=== PATIENT | male | born 1955 | race Caucasian/White ===

== ENCOUNTER 2017-08-08 08:42 | Inpatient (IN) | payer OTHER ==
[~2017-08-08] VITALS: Ht 175.3 cm; Wt 78.0 kg
[2017-08-08] VITALS (12 sets, daily range): BP systolic 112–156; BP diastolic 64–90; PULSE 78–101; RESP 16–24; TEMP 97.7–98.8; O2SAT 92–96
[~2017-08-08 08:42] MED LIST: ALBU8I INH; ALLO100T PO; BUPR-86 PO; LORT7.5T3 PO; OMEP20TA39 PO; PRED20 PO; ROPI2TAB23 PO; SPIR25TA PO; SPIRCAP INH
[2017-08-08] MEDS ORDERED: ALLO100T PO (09:14)
[2017-08-08] MEDS ORDERED: ROPI2TAB PO (09:14)
[2017-08-08] MEDS ORDERED: VENTAER INH (09:14)
[2017-08-08] MEDS ORDERED: SPIR25TA PO (09:14)
[2017-08-08] MEDS ORDERED: PRIL20TA2 PO (09:14)
[2017-08-08] MEDS ORDERED: HYDR-3583 PO (09:14)
[2017-08-08] MEDS ORDERED: ATOR20TA15 PO (09:14)
[2017-08-08] MEDS ORDERED: methylPREDNISolone SOD SUCC 125 MG/2 ML VIAL IV PUSH ONE (09:30)
[2017-08-08] MEDS ORDERED: SODIUM CHLORIDE 0.9% FLUSH 10 ML FLUSH IVF PRN (09:30)
--- NOTE | 2017-08-08 09:32 | PD ---
HPI Chief Complaint: Syncope/Near-Syncope Time Seen by Provider: 09:17 Travel History International Travel<30 days: No Contact w/Intl Traveler<30days: No Traveled to known affect area: No History of Present Illness HPI Patient presents to the emergency department for syncopal episode at work. States that he was at work this morning, he is a restaurant maintenance technician, and he passed out. New onset. States that he was this normal routine and was leaning on a toolbox when he felt faint. He did not fall, he had to hold himself up on the wall and his vision went white. States that his vision is normal now. Then drove home to have his bring him to the ER. He denies chest pain, numbness , tingling, vomiting, headache, but reports sweating, dyspnea secondary to COPD , and subjective fever. PFSH Past Medical History High Cholesterol: Yes COPD: Yes Gastrointestinal Disorders: Yes (Pancreatitis) Hypertension: Yes Medical other: Yes (GOUT) Respiratory: Yes Influenza Vaccination: Yes ?: Not Past Surgical History Abdominal Surgery: Yes (HERNIA REPAIR) Genitourinary Surgery: Yes (Hemmroids) Other Surgery: Yes (INFECTION CUT OUT OF BACK ) Social History Alcohol Use: Yes (12 PPD) Tobacco Use: No (TRYING TO QUIT) Substance Use: No Allergies-Medications (Allergen,Severity, Reaction): Coded Allergies: nabumetone (Unverified Adverse Reaction, Severe, Nausea/Vomiting, 08/08/17) Reported Meds & Prescriptions Reported Meds & Active Scripts Active Reported Ropinirole 2 Mg Tab 2 Mg PO ONCE Ventolin Hfa 18 GM Inh (Albuterol Sulfate) 90 Mcg/Act Aer 2 Puff INH Q6H PRN Spironolactone 25 Mg Tab 25 Mg PO DAILY Prilosec (Omeprazole Magnesium) 20 Mg Tab 20 Mg PO Allopurinol 100 Mg Tab 100 Mg PO DAILY Atorvastatin (Atorvastatin Calcium) 20 Mg Tab 20 Mg PO HS Hydrocodone-Acetaminophen 10-325 mg Tab 1 Tab PO Q6H PRN Review of Systems Except as stated in HPI: all other systems reviewed are Neg Physical Exam Narrative GENERAL: No acute distress. SKIN: Focused skin assessment warm/dry. HEAD: Atraumatic. Normocephalic. EYES: Pupils equal and round. No scleral icterus. No injection or drainage. ENT: No nasal bleeding or discharge. Mucous membranes pink and moist. NECK: Trachea midline. No JVD. CARDIOVASCULAR: Regular rate and rhythm. No murmur appreciated. RESPIRATORY: No accessory muscle use. Positive bilateral expiratory wheezes GASTROINTESTINAL: Abdomen soft, non-tender, nondistended. MUSCULOSKELETAL: No obvious deformities. No clubbing. No cyanosis. No edema. NEUROLOGICAL: Awake and alert. No obvious cranial nerve deficits. Motor grossly within normal limits. Normal speech. PSYCHIATRIC: Appropriate mood and affect; insight and judgment normal. Data Data Last Documented VS Vital Signs Date Time Temp Pulse Resp B/P (MAP) Pulse Ox O2 Delivery O2 Flow Rate FiO2 08/08/17 09:48 72 23 113/64 (80) 76 16 112/77 (89) 83 16 114/78 (90) 08/08/17 09:36 96 Nasal Cannula 2.00 08/08/17 08:45 97.7 Orders Orders Electrocardiogram (08/08/17 ) Complete Blood Count With Diff (08/08/17 09:27) Comprehensive Metabolic Panel (08/08/17:27) B-Type Natriuretic Peptide (08/08/17:27) D-Dimer (08/08/17 09:27) Act Partial Throm Time (Ptt) (08/08/17 09:27) Prothrombin Time / Inr (Pt) (08/08/17 09:27) Magnesium (Mg) (08/08/17 09:27) Ckmb (Isoenzyme) Profile (08/08/17 09:27) Troponin I (08/08/17 09:27) Iv Access Insert/Monitor (08/08/17:27) Electrocardiogram (08/08/17:27) Ecg Monitoring (08/08/17:27) Oximetry (08/08/17:27) Chest, Single Ap (08/08/17 09:27) Sodium Chloride 0.9% Flush (Ns Flush) (08/08/17 09:30) Methylprednisolone So Succ Inj (Solumedr (08/08/17 09:30) Albuterol-Ipratropium Neb (Duoneb Neb) (08/08/17 09:30) Orthostatic Vital Signs (08/08/17 09:28) Ct Brain W/O Iv Contrast(Rout) (08/08/17 10:18) Albuterol-Ipratropium Neb (Duoneb Neb) (08/08/17 11:45) Place In Observation (08/08/17 ) Code Status (08/08/17 11:55) Vital Signs (Adult) Q4H (08/08/17 11:55) Activity Bed Rest With Brp (08/08/17 ) Diet Regular Basic (08/08/17 Lunch) Sodium Chloride 0.9% Flush (Ns Flush) (08/08/17 21:00) Sodium Chloride 0.9% Flush (Ns Flush) (08/08/17 12:00) Albuterol-Ipratropium Neb (Duoneb Neb) (08/08/17 14:00) Albuterol Neb (Albuterol Neb) (08/08/17 12:00) Budeson-Formot 160-4.5 Mcg Inh (Symbicor (08/08/17 12:00) Methylprednisolone So Succ Inj (Solumedr (08/08/17 16:00) Basic Metabolic Panel (Bmp) (08/09/17 06:00) Complete Blood Count With Diff (08/09/17 06:00) Chest, Pa & Lat (08/09/17 08:00) Electrocardiogram (08/08/17 ) Resp Oxygen David C Titrat 1-4 L (08/08/17 ) Copd Educator Consult (08/08/17 ) Scd Bilateral/Knee High JOSE L.BID (08/08/17 11:55) Ns + Kcl 20 Meq Inj (Ns + Kcl 20 Meq Inj (08/08/17 14:00) Echo 2d Comp With Doppler (08/08/17 ) Holter Monitor Recording (08/08/17 ) Guide Dog Instructor / Telemetry JOSE L.Q8H (08/08/17 11:59) Thyroid Stimulating Hormone (08/08/17 11:59) Free Thyroxine (T4) (08/08/17 11:59) Rapid Plasma Regin (Rpr) W Ttr (08/08/17 11:59) Vitamin B12 (08/08/17 11:59) Folate, Serum (08/08/17 11:59) Ammonia (08/08/17 11:59) ^ Other Nursing Orders (08/08/17 11:59) Flumazenil Inj (Romazicon Inj) (08/08/17 12:15) Lorazepam (Ativan) (08/08/17 12:15) Lorazepam Inj (Ativan Inj) (08/08/17 12:15) Lorazepam (Ativan) (08/08/17 12:15) Lorazepam Inj (Ativan Inj) (08/08/17 12:15) Lorazepam Inj (Ativan Inj) (08/08/17 12:15) Lorazepam Inj (Ativan Inj) (08/08/17 12:15) Admit Order (Ed Use Only) (08/08/17 12:04) Labs Laboratory Tests Test 08/08/17 09:20 White Blood Count 10.7 TH/MM3 Red Blood Count 4.29 MIL/MM3 Hemoglobin 15.0 GM/DL Hematocrit 43.5 % Mean Corpuscular Volume 101.3 FL Mean Corpuscular Hemoglobin 34.9 PG Mean Corpuscular Hemoglobin Concent 34.4 % Red Cell Distribution Width 13.9 % Platelet Count 321 TH/MM3 Mean Platelet Volume 7.7 FL Neutrophils (%) (Auto) 78.2 % Lymphocytes (%) (Auto) 11.1 % Monocytes (%) (Auto) 8.9 % Eosinophils (%) (Auto) 1.0 % Basophils (%) (Auto) 0.8 % Neutrophils # (Auto) 8.3 TH/MM3 Lymphocytes # (Auto) 1.2 TH/MM3 Monocytes # (Auto) 0.9 TH/MM3 Eosinophils # (Auto) 0.1 TH/MM3 Basophils # (Auto) 0.1 TH/MM3 CBC Comment DIFF FINAL Differential Comment Prothrombin Time 9.7 SEC Prothromb Time International Ratio 1.0 RATIO Activated Partial Thromboplast Time 24.5 SEC D-Dimer Quantitative (PE/DVT) 0.28 MG/L FEU Blood Urea Nitrogen 10 MG/DL Creatinine 0.73 MG/DL Random Glucose 76 MG/DL Total Protein 7.2 GM/DL Albumin 3.5 GM/DL Calcium Level 9.0 MG/DL Magnesium Level 2.3 MG/DL Alkaline Phosphatase 97 U/L Aspartate Amino Transf (AST/SGOT) 26 U/L Alanine Aminotransferase (ALT/SGPT) 28 U/L Total Bilirubin 0.1 MG/DL Sodium Level 135 MEQ/L Potassium Level 4.0 MEQ/L Chloride Level 101 MEQ/L Carbon Dioxide Level 23.4 MEQ/L Anion Gap 11 MEQ/L Estimat Glomerular Filtration Rate 109 ML/MIN Total Creatine Kinase 86 U/L Troponin I LESS THAN 0.02 NG/ML B-Type Natriuretic Peptide 12 PG/ML MDM Medical Decision Making Medical Screen Exam Complete: Yes Emergency Medical Condition: Yes Interpretation(s) ECG: Sinus rhythm, rate 80, normal axis, normal intervals, QTC 395 labs: No leukocytosis, coags and d-dimer within normal limits, chemistry within normal limits Last Impressions Head CT 08/08/17 1018 Signed Impressions: CONCLUSION: 1. Senescent changes without acute intracranial abnormality. 2. Paranasal mucosal sinus disease. Chest X-Ray 08/08/17 0936 Signed Impressions: CONCLUSION: No acute cardiopulmonary findings. Differential Diagnosis COPD exacerbation, ACS, PE, CVA, intracranial abnormality, dehydration/ orthostasis Narrative Course Patient presents to the emergency department complaining of presyncopal episode. Patient placed on a diagnostic cardiac sonographer, IV access obtain an EKG/chest x- ray/head CT/labs ordered. Also 125 methylprednisolone and DuoNeb 2 ordered. 1138: Patient not orthostatic. Lungs positive expiratory wheezing after IV steroids and 2 duo nebs. Patient reports turnabout shortness of breath. Ordered another DuoNeb and admit for observation. Diagnosis Primary Impression: COPD exacerbation Additional Impression: Pre-syncope Admitting Information Admitting Physician Requests: Observation Condition: Stable Afua Munoz MD Aug 08, 2017 09:32
[2017-08-08] MEDS: RESP: ALBUTEROL 2.5 MG/IPRATROPIUM 0.5 MG NEB (SCH) INH ×3 (09:34→23:08)
[2017-08-08 09:45] LABS: AUTOMATED NEUTROPHIL # 8.3 TH/MM3 (1.8-7.7); BASOPHIL # 0.1 TH/MM3 (0-0.2); BASOPHIL % 0.8 % (0.0-2.0); EOSINOPHIL # 0.1 TH/MM3 (0-0.4); HEMATOCRIT 43.5 % (39.0-51.0); LYMPH % 11.1 % (9.0-44.0); LYMPHOCYTE # 1.2 TH/MM3 (1.0-4.8); MEAN CELL VOLUME 101.3 FL (80.0-100.0); MEAN CORPUSCULAR HEMOGLOBIN 34.9 PG (27.0-34.0); MEAN CORPUSCULAR HGB CONC 34.4 % (32.0-36.0); MEAN PLATELET VOLUME 7.7 FL (7.0-11.0); MONO % 8.9 % (0.0-8.0); MONOCYTE # 0.9 TH/MM3 (0-0.9); NEUT % 78.2 % (16.0-70.0); PLATELET COUNT 321 TH/MM3 (150-450); RED BLOOD COUNT 4.29 MIL/MM3 (4.50-5.90); RED CELL DISTRIBUTION WIDTH 13.9 % (11.6-17.2); WHITE BLOOD COUNT 10.7 TH/MM3 (4.0-11.0)
[2017-08-08 09:58] LABS: D-DIMER 0.28 MG/L FEU (0.00-0.50); PROTHROMBIN TIME - PATIENT 9.7 SEC (9.8-11.6)
[2017-08-08 10:03] LABS: ALBUMIN 3.5 GM/DL (3.4-5.0); ALT (GPT) 28 U/L (12-78); AST (GOT) 26 U/L (15-37); BICARBONATE 23.4 MEQ/L (21.0-32.0); BLOOD UREA NITROGEN 10 MG/DL (7-18); CHLORIDE 101 MEQ/L (98-107); CREATININE 0.73 MG/DL (0.60-1.30); GLOMERULAR FILTRATION RATE 109 ML/MIN (>89); GLUCOSE,RANDOM 76 MG/DL (74-106); MAGNESIUM 2.3 MG/DL (1.5-2.5); SODIUM (NA) 135 MEQ/L (136-145)
--- NOTE | 2017-08-08 10:05 | RADRPT ---
EXAM DATE: 08/08/2017 9:52 AM EDT AGE/SEX: 61 years / Male INDICATIONS: Short of breath, syncope CLINICAL DATA: This is the patient's initial encounter. Patient reports that signs and symptoms have been present for 1 day and indicates a pain score of 0/10. MEDICAL/SURGICAL HISTORY: Chronic obstructive pulmonary disease. None. COMPARISON: No prior exams available for comparison. FINDINGS: A single AP view of the chest demonstrates the lungs to be symmetrically aerated without evidence of mass, infiltrate or effusion. The cardiomediastinal contours are unremarkable. Osseous structures a re intact. CONCLUSION: No acute cardiopulmonary findings. Electronically signed by: Reji Cintron MD 08/08/2017 10:03 AM EDT
[2017-08-08 10:07] LABS: ALKALINE PHOSPHATASE 97 U/L (45-117); TOTAL BILIRUBIN ADULT 0.1 MG/DL (0.2-1.0); TOTAL PROTEIN 7.2 GM/DL (6.4-8.2); TROPONIN I LESS THAN 0.02 NG/ML (0.02-0.05)
--- NOTE | 2017-08-08 10:57 | RADRPT ---
EXAM DATE: 08/08/2017 10:53 AM EDT AGE/SEX: 61 years / Male INDICATIONS: Syncopal episode this morning. CLINICAL DATA: This is the patient's initial encounter. Patient reports that signs and symptoms have been present for 1 day and indicates a pain score of 0/10. MEDICAL/SURGICAL HISTORY: Hypertension. Chronic obstructive pulmonary disease. None. RADIATION DOSE: 36.24 CTDI (mGy) COMPARISON: No prior exams available for comparison. TECHNIQUE: CT of the head without contrast. Using automated exposure control and adjustment of the mA and/or kV according to patient size, radiation dose was kept as low as reasonably achievable to ob tain optimal diagnostic quality images. DICOM format image data is available electronically for revi ew and comparison. FINDINGS: Cerebrum: Mild diffuse cerebral atrophy. The ventricles are normal for degree of atrophy. No evidenc e of midline shift, mass lesion, hemorrhage or acute infarction. No extraaxial fluid collections are seen. Posterior Fossa: The cerebellum and brainstem are intact. The 4th ventricle is midline. The cerebe llopontine angle is unremarkable. Extracranial: The visualized portion of the orbits is intact. Mucosal partial thickening involving t he ethmoid air cells, left sphenoid sinus and right maxillary sinus. Skull: The calvaria is intact. No evidence of skull fracture. CONCLUSION: 1. Senescent changes without acute intracranial abnormality. 2. Paranasal mucosal sinus disease. Electronically signed by: Shakir Donald MD 08/08/2017 10:56 AM EDT
[2017-08-08] MEDS ORDERED: RESP: ALBUTEROL 2.5 MG/IPRATROPIUM 0.5 MG NEB (SCH) INH ONE (11:45)
[2017-08-08] MEDS ORDERED: SODIUM CHLORIDE 0.9% FLUSH 10 ML FLUSH IV FLUSH PRN (12:00)
[2017-08-08] MEDS: BUDESONIDE-FORMOTEROL 160/4.5 MCG INHALER INH SCH ×2 (12:00→22:17)
[2017-08-08] MEDS ORDERED: RESP: ALBUTEROL 2.5 MG/3 ML NEB (PRN) INH (12:00)
[2017-08-08] MEDS ORDERED: FLUMAZENIL 0.5 MG/5 ML VIAL IV PUSH PRN (12:15)
[2017-08-08] MEDS ORDERED: LORazepam 2 MG/ML VIAL IV PUSH PRN ×4 (12:15)
[2017-08-08] MEDS ORDERED: LORazepam 2 MG TAB PO PRN (12:15)
--- NOTE | 2017-08-08 12:18 | HHI.HP ---
HPI Service [facility] Hospitalists Primary Care Physician Kailash Cuellar D.O. Admission Diagnosis COPD exacerbation and near syncope Chief Complaint: near syncope Travel History International Travel<30 Days: No Contact w/Intl Traveler <30 Da: No Traveled to Known Affected Are: No History of Present Illness This is a 61 year old male patient with a past medical history which includes HTN, hyperlipidemia, COPD, pancreatitis and gout. Patient presents to the emergency department for a near syncopal episode at work earlier today. States that he was at work this morning, he is a maintenance apprentice. Patient states that he was in his normal state of health this AM doing his normal routine began to feel nauseated he went outside and leaned against the wall. He did not fall, he had to hold himself up on the wall and reports that his vision went white, for a few seconds. Patient does endorse diaphoresis, severe shortness of breath and cough productive of yellow/green phlegm. Patient reports that he has been short of breath for many year but his shortness of breath has gotten progressively worse over the past 2 weeks. Patient denies chest pain or N/V during the episode. Patient admits to drinking approximately a 12 pack of beer per day and is trying to quit smoking using nicotine patch. Review of Systems Constitutional: DENIES: Fever, Weight loss, Chills Eyes: DENIES: Blurred vision, Diplopia, Vision loss Respiratory: COMPLAINS OF: Wheezing, Shortness of breath Cardiovascular: DENIES: Chest pain, Dyspnea on Exertion, Lower Extremity Edema Gastrointestinal: DENIES: Abdominal pain, Constipation, Diarrhea, Nausea, Vomiting Neurologic: DENIES: Abnormal gait, Headache, Localized weakness, Speech Problems Psychiatric: DENIES: Anxiety, Confusion, Depression Past Family Social History Past Medical History HTN, hyperlipidemia, COPD, pancreatitis and gout Past Surgical History Hernia repair, hemorrhoidectomy, EGD and colonoscopy with polypectomy Reported Medications Ropinirole 2 Mg Tab 2 Mg PO ONCE Ventolin Hfa 18 GM Inh (Albuterol Sulfate) 90 Mcg/Act Aer 2 Puff INH Q6H PRN Spironolactone 25 Mg Tab 25 Mg PO DAILY Prilosec (Omeprazole Magnesium) 20 Mg Tab 20 Mg PO Allopurinol 100 Mg Tab 100 Mg PO DAILY Atorvastatin (Atorvastatin Calcium) 20 Mg Tab 20 Mg PO HS Hydrocodone-Acetaminophen 10-325 mg Tab 1 Tab PO Q6H PRN Allergies: Coded Allergies: nabumetone (Unverified Adverse Reaction, Severe, Nausea/Vomiting, 08/08/17) Family History Reviewed and noncontributory Social History ETOH 12 pack of beer per day Tobacco use trying to quit denies illicit drug use Physical Exam Vital Signs Vital Signs Date Time Temp Pulse Resp B/P (MAP) Pulse Ox O2 Delivery O2 Flow Rate FiO2 08/08/17 09:48 72 23 113/64 (80) 76 16 112/77 (89) 83 16 114/78 (90) 08/08/17 09:36 96 Nasal Cannula 2.00 08/08/17 09:02 78 19 140/79 (99) 96 Nasal Cannula 2.00 08/08/17 09:02 96 Nasal Cannula 2.00 08/08/17 08:45 97.7 82 24 124/90 (101) 95 Physical Exam GENERAL: This is a well-nourished, well-developed patient, in no apparent distress. HEAD: Atraumatic. Normocephalic. No temporal or scalp tenderness. EYES: Extraocular motions intact. No scleral icterus. No injection or drainage. CARDIOVASCULAR: Regular rate and rhythm RESPIRATORY: diminished with poor air movement through out GASTROINTESTINAL: Abdomen soft, non-tender, nondistended. MUSCULOSKELETAL: Extremities without clubbing, cyanosis, or edema. No joint tenderness, effusion, or edema noted. No calf tenderness. Negative Homans sign bilaterally. NEUROLOGICAL: Awake and alert. No focal deficits noted. Motor and sensory grossly within normal limits. Five out of 5 muscle strength in all muscle groups. Normal speech. Laboratory Laboratory Tests Test 08/08/17 09:20 White Blood Count 10.7 Red Blood Count 4.29 Hemoglobin 15.0 Hematocrit 43.5 Mean Corpuscular Volume 101.3 Mean Corpuscular Hemoglobin 34.9 Mean Corpuscular Hemoglobin Concent 34.4 Red Cell Distribution Width 13.9 Platelet Count 321 Mean Platelet Volume 7.7 Neutrophils (%) (Auto) 78.2 Lymphocytes (%) (Auto) 11.1 Monocytes (%) (Auto) 8.9 Eosinophils (%) (Auto) 1.0 Basophils (%) (Auto) 0.8 Neutrophils # (Auto) 8.3 Lymphocytes # (Auto) 1.2 Monocytes # (Auto) 0.9 Eosinophils # (Auto) 0.1 Basophils # (Auto) 0.1 CBC Comment DIFF FINAL Differential Comment Prothrombin Time 9.7 Prothromb Time International Ratio 1.0 Activated Partial Thromboplast Time 24.5 D-Dimer Quantitative (PE/DVT) 0.28 Blood Urea Nitrogen 10 Creatinine 0.73 Random Glucose 76 Total Protein 7.2 Albumin 3.5 Calcium Level 9.0 Magnesium Level 2.3 Alkaline Phosphatase 97 Aspartate Amino Transf (AST/SGOT) 26 Alanine Aminotransferase (ALT/SGPT) 28 Total Bilirubin 0.1 Sodium Level 135 Potassium Level 4.0 Chloride Level 101 Carbon Dioxide Level 23.4 Anion Gap 11 Estimat Glomerular Filtration Rate 109 Total Creatine Kinase 86 Troponin I LESS THAN 0.02 B-Type Natriuretic Peptide 12 Result Diagram: 08/08/1791908/08/17919 Imaging Last Impressions Head CT 08/08/17 1018 Signed Impressions: CONCLUSION: 1. Senescent changes without acute intracranial abnormality. 2. Paranasal mucosal sinus disease. Chest X-Ray 08/08/17926 Signed Impressions: CONCLUSION: No acute cardiopulmonary findings. Caprini VTE Risk Assessment Caprini VTE Risk Assessment: No/Low Risk (score <= 1) Caprini Risk Assessment Model Point Value = 1 Point Value = 2 Point Value = 3 Point Value = 5 Age 41-60 Minor surgery BMI > 25 kg/m2 Swollen legs Varicose veins or History of unexplained or recurrent spontaneous Oral contraceptives or hormone replacement Sepsis (< 1 month) Serious lung disease, including pneumonia (< 1 month) Abnormal pulmonary function Acute myocardial infarction Congestive heart failure (< 1 month) History of inflammatory bowel disease Medical patient at bed rest Age 61-74 Arthroscopic surgery Major open surgery (> 45 min) Laparoscopic surgery (> 45 min) Malignancy Confined to bed (> 72 hours) Immobilizing plaster cast Central venous access Age >= 75 History of VTE Family history of VTE Factor V Leiden Prothrombin [id number] Lupus anticoagulant Anticardiolipin antibodies Elevated serum homocysteine Heparin-induced thrombocytopenia Other congenital or acquired thrombophilia Stroke (< 1 month) Elective arthroplasty Hip, pelvis, or leg fracture Acute spinal cord injury (< 1 month) Prophylaxis Regimen Total Risk Factor Score Risk Level Prophylaxis Regimen 0-1 Low Early ambulation 2 Moderate Order ONE of the following: *Sequential Compression Device (SCD) *Heparin 5000 units SQ BID 3-4 Higher Order ONE of the following medications: *Heparin 5000 units SQ TID *Enoxaparin/Lovenox 40 mg SQ daily (WT < 150 kg, CrCl > 30 mL/min) *Enoxaparin/Lovenox 30 mg SQ daily (WT < 150 kg, CrCl > 10-29 mL/min) *Enoxaparin/Lovenox 30 mg SQ BID (WT < 150 kg, CrCl > 30 mL/min) AND/OR *Sequential Compression Device (SCD) 5 or more Highest Order ONE of the following medications: *Heparin 5000 units SQ TID (Preferred with Epidurals) *Enoxaparin/Lovenox 40 mg SQ daily (WT < 150 kg, CrCl > 30 mL/min) *Enoxaparin/Lovenox 30 mg SQ daily (WT < 150 kg, CrCl > 10-29 mL/min) *Enoxaparin/Lovenox 30 mg SQ BID (WT < 150 kg, CrCl > 30 mL/min) AND *Sequential Compression Device (SCD) Assessment and Plan Problem List: (1) Pre-syncope ICD Codes: R55 - Syncope and collapse Status: Acute Plan: continuous telemetry Holter monitor 2D echocardiogram Ammonia, Folate, TSH free T4, RPR, Vit B 12 DVT prophylaxis with SCDs (2) COPD exacerbation ICD Codes: J44.1 - Chronic obstructive pulmonary disease with (acute) exacerbation Status: Acute Plan: Solu-medrol 125 mg IV given in ER Symbicort BID Duonebs Q4H and PRN Solumedrol 60 Q6H IS and Acapella Supplemental oxygen as need to maintain saturation > 92% CXR in AM No acute cardiopulmonary findings CT chest in AM (3) ETOH abuse ICD Codes: F10.10 - Alcohol abuse, uncomplicated Plan: [facility] protocol Folate and Vit B12 (4) Gout ICD Codes: M10.9 - Gout, unspecified Plan: Continue home allopurinol (5) HTN (hypertension) ICD Codes: I10 - Essential (primary) hypertension Plan: Continue home amlodipine 2.5 mg PO daily (6) Hyperlipidemia ICD Codes: E78.5 - Hyperlipidemia, unspecified Plan: continue home Atorvastatin Assessment and Plan Patient examined. Assessment and plan formulated with Aurelia Burris PA-C. I agree with the above. poor air movement on lung auscultation - pt started on IV solumedrol, duonebs - CT chest ordered Pt drinks 12 beers per day. Start scheduled librium. CIWA protocol. Aurelia Burris Aug 08, 2017 12:18 Jeferson Blue DO Aug 09, 2017 12:02
--- NOTE | 2017-08-08 13:40 | EKG ---
Date Performed: 08/08/2017 Time Performed: 09:19:35 PTAGE: 61 years EKG: Sinus rhythm NORMAL ECG NO PREVIOUS TRACING DOCTOR: Tim Edwards Interpretating Date/Time 08/08/2017 13:38:56
[2017-08-08] MEDS: NS + KCL 20 MEQ INJ 1,000 ML IV SCH (13:56)
[2017-08-08] MEDS ORDERED: RESP: ALBUTEROL 2.5 MG/IPRATROPIUM 0.5 MG NEB (SCH) INH (14:00)
[2017-08-08 14:44] LABS: FREE T4 0.77 NG/DL (0.76-1.46)
[2017-08-08 14:56] LABS: FOLATE GREATER THAN 20.0 NG/ML (3.1-17.5)
[2017-08-08] MEDS: methylPREDNISolone SOD SUCC 125 MG/2 ML VIAL IV PUSH SCH ×2 (16:34→22:16)
[2017-08-08] MEDS ORDERED: AMLO2.5T PO (17:09)
[2017-08-08] MEDS ORDERED: UMEC1AER INH (17:09)
[2017-08-08] MEDS ORDERED: PILL SPLITTER OTHER PRN (17:30)
[2017-08-08] MEDS: LEVOFLOXACIN 500 MG TAB PO SCH (18:36)
[2017-08-08] MEDS: NICOTINE 21 MG/24 HR PATCH T-DERMAL SCH (18:36)
[2017-08-08] MEDS ORDERED: IOHEXOL 350 MG/ML 10 ML VIAL (for RAD DIAG) IVCONTRAST ONE (20:20)
--- NOTE | 2017-08-08 20:23 | RADRPT ---
EXAM DATE: 08/08/2017 8:19 PM EDT AGE/SEX: 61 years / Male INDICATIONS: Shortness of breath. CLINICAL DATA: This is the patient's initial encounter. Patient reports that signs and symptoms have been present for 1 day and indicates a pain score of 0/10. MEDICAL/SURGICAL HISTORY: Chronic obstructive pulmonary disease. Hypertension. None. RADIATION DOSE: 12.49 CTDI (mGy) COMPARISON: No prior exams available for comparison. TECHNIQUE: Multiple contiguous axial images were obtained through the chest during bolus infusion of 70 ml Omnipaque 350 (iohexol) nonionic water-soluble contrast as a single exam dose. Images were obtained in suspended respiration using multiple row detector helical technique. Using automated exp osure control and adjustment of the mA and/or kV according to patient size, radiation dose was kept a s low as reasonably achievable to obtain optimal diagnostic quality images. DICOM format image data is available electronically for review and comparison. FINDINGS: Lungs: The lungs are symmetrically aerated. No infiltrates or nodular densities are seen. Mild emph ysema. Minimal subsegmental atelectasis/scarring right lower lobe. Mediastinum: There is good visualization of the great vessels of the middle mediastinum. No evidenc e of mediastinal or hilar adenopathy/mass. Pleurae: No evidence of focal thickening or pleural effusion. Axillae: Unremarkable. Bony Structures: Unremarkable. Miscellaneous: The examination was extended to include the upper abdomen. Hepatic low densities. Rig ht adrenal mass contains macroscopic fat consistent with myelolipoma, benign. This measures 2.6 cm. CONCLUSION: 1. Emphysema without infiltrate. 2. Minimal right basilar subsegmental atelectasis/scarring. 3. Hepatic low densities and right adrenal myelolipoma. Electronically signed by: Carlton Buckley MD 08/08/2017 8:22 PM EDT
[2017-08-08] MEDS: ATORVASTATIN 20 MG TAB PO SCH (22:17)
[2017-08-08] MEDS: SODIUM CHLORIDE 0.9% FLUSH 10 ML FLUSH IV FLUSH SCH (22:17)
[2017-08-09] VITALS (14 sets, daily range): BP systolic 136–169; BP diastolic 74–98; PULSE 82–107; RESP 16–18; TEMP 97.1–98.6; O2SAT 92–100
[2017-08-09] MEDS: RESP: ALBUTEROL 2.5 MG/IPRATROPIUM 0.5 MG NEB (SCH) INH ×6 (03:49→23:50)
[2017-08-09] MEDS: NS + KCL 20 MEQ INJ 1,000 ML IV SCH ×2 (04:51→14:46)
[2017-08-09] MEDS: methylPREDNISolone SOD SUCC 125 MG/2 ML VIAL IV PUSH SCH ×4 (04:51→22:00)
[2017-08-09 07:41] LABS: AUTOMATED NEUTROPHIL # 12.3 TH/MM3 (1.8-7.7); BASOPHIL % 0.1 % (0.0-2.0); HEMATOCRIT 42.5 % (39.0-51.0); HEMOGLOBIN 14.3 GM/DL (13.0-17.0); LYMPH % 4.1 % (9.0-44.0); LYMPHOCYTE # 0.6 TH/MM3 (1.0-4.8); MEAN CELL VOLUME 102.5 FL (80.0-100.0); MEAN CORPUSCULAR HEMOGLOBIN 34.5 PG (27.0-34.0); MEAN CORPUSCULAR HGB CONC 33.6 % (32.0-36.0); MONOCYTE # 0.7 TH/MM3 (0-0.9); NEUT % 90.8 % (16.0-70.0); PLATELET COUNT 313 TH/MM3 (150-450); RED BLOOD COUNT 4.15 MIL/MM3 (4.50-5.90); RED CELL DISTRIBUTION WIDTH 13.5 % (11.6-17.2); WHITE BLOOD COUNT 13.6 TH/MM3 (4.0-11.0)
[2017-08-09 08:41] LABS: BICARBONATE 25.4 MEQ/L (21.0-32.0); CALCIUM 9.5 MG/DL (8.5-10.1); CREATININE 0.79 MG/DL (0.60-1.30)
[2017-08-09] MEDS: REMOVE OLD PATCH T-DERMAL SCH (09:00)
[2017-08-09] MEDS: NICOTINE 21 MG/24 HR PATCH T-DERMAL SCH (09:00)
[2017-08-09] MEDS: BUDESONIDE-FORMOTEROL 160/4.5 MCG INHALER INH SCH (09:00)
[2017-08-09] MEDS ORDERED: amLODIPine BESYLATE 5 MG TAB PO SCH (09:00)
[2017-08-09] MEDS: LORazepam 1 MG TAB PO PRN ×3 (09:01→22:39)
[2017-08-09] MEDS: LEVOFLOXACIN 500 MG TAB PO SCH (09:02)
[2017-08-09] MEDS: FOLIC ACID 1 MG TAB PO SCH (09:02)
[2017-08-09] MEDS: MULTIVITAMINS/MINERALS THERAPEUTIC TAB PO SCH (09:02)
[2017-08-09] MEDS: ALLOPURINOL 100 MG TAB PO SCH (09:02)
[2017-08-09] MEDS: SODIUM CHLORIDE 0.9% FLUSH 10 ML FLUSH IV FLUSH SCH ×2 (09:02→21:00)
[2017-08-09] MEDS: THIAMINE HCL 100 MG TAB PO SCH (09:02)
[2017-08-09] MEDS ORDERED: amLODIPine BESYLATE 5 MG TAB PO ONE (10:00)
[2017-08-09] MEDS ORDERED: chlordiazePOXIDE 25 MG CAP PO PRN (11:45)
--- NOTE | 2017-08-09 12:10 | HHI.PR ---
Subjective Remarks Pt c/o being tremulous. Pt c/o continued SOB and wheezing. Objective Vitals Vital Signs Date Time Temp Pulse Resp B/P (MAP) Pulse Ox O2 Delivery O2 Flow Rate FiO2 08/09/17 11:34 98.2 104 18 136/74 (94) 92 08/09/17 07:45 95 21 08/09/17 07:23 97.3 95 18 151/78 (102) 93 08/09/17 07:00 107 08/09/17 04:00 88 08/09/17 03:56 91 16 150/80 (103) 100 08/08/17 23:27 98.5 99 17 143/72 (95) 95 08/08/17 23:10 92 21 08/08/17 19:20 101 17 150/80 (103) 93 08/08/17 18:05 141/82 (101) 08/08/17 18:04 141/73 (95) 08/08/17 18:03 98.8 96 20 156/81 (106) 92 08/08/17 16:21 98.1 88 18 145/75 (98) 92 08/08/17 15:53 90 08/08/17 13:02 Result Diagram: 08/09/17 0610 08/09/17 0610 Imaging Last Impressions Head CT 08/08/17 1018 Signed Impressions: CONCLUSION: 1. Senescent changes without acute intracranial abnormality. 2. Paranasal mucosal sinus disease. Chest X-Ray 08/08/17 0927 Signed Impressions: CONCLUSION: No acute cardiopulmonary findings. Chest CT 08/08/17 0000 Signed Impressions: CONCLUSION: 1. Emphysema without infiltrate. 2. Minimal right basilar subsegmental atelectasis/scarring. 3. Hepatic low densities and right adrenal myelolipoma. Objective Remarks GENERAL: This is a well-nourished, well-developed patient, in no apparent distress. CARDIOVASCULAR: Regular rate and rhythm without murmurs, gallops, or rubs. RESPIRATORY: improved air movement from admission, but b/l wheezing. GASTROINTESTINAL: Abdomen soft, non-tender, nondistended. Normal active bowel sounds MUSCULOSKELETAL: Extremities without clubbing, cyanosis, or edema. NEURO: Alert & Oriented x4 to person, place, time, situation. Moves all ext x4 A/P Problem List: (1) Pre-syncope ICD Codes: R55 - Syncope and collapse Status: Acute Plan: - near syncopal episode likely d/t COPD exacerbation and etoh - tele: NSR/sinus tach - holter pending - echocardiogram pending - Ammonia, Folate, TSH free T4, RPR, Vit B 12 --> WNL - DVT prophylaxis with SCDs (2) COPD exacerbation ICD Codes: J44.1 - Chronic obstructive pulmonary disease with (acute) exacerbation Status: Acute Plan: - Pt has smoked since 18 y/o. Pt recently stopped. Using NicoDerm patch - Solu-medrol 125 mg IV given in ER - Supplemental oxygen as need to maintain saturation > 92% - CXR (08/08) --> no acute findings - CT chest (08/08) --> mild emphysema - Symbicort BID - Duonebs Q4H and PRN - Solumedrol 60 Q6H - levaquin - IS and Acapella (3) ETOH abuse ICD Codes: F10.10 - Alcohol abuse, uncomplicated Plan: - tremulous - increase scheduled librium to 25mg TID - ativan by [facility] protocol - MVI, thiamine, folate - Pt will need to f/u with [facility] Mental Health upon discharge (4) Gout ICD Codes: M10.9 - Gout, unspecified Plan: Continue home allopurinol (5) HTN (hypertension) ICD Codes: I10 - Essential (primary) hypertension Plan: Continue home amlodipine 2.5 mg PO daily (6) Hyperlipidemia ICD Codes: E78.5 - Hyperlipidemia, unspecified Plan: continue home Atorvastatin Jeferson Blue DO Aug 09, 2017 12:10
[2017-08-09] MEDS: chlordiazePOXIDE 25 MG CAP PO SCH ×2 (12:45→17:31)
[2017-08-09] MEDS: ACETAMINOPHEN 325 MG TAB PO PRN (12:46)
--- NOTE | 2017-08-09 18:27 | EKG ---
Date Performed: 08/08/2017 Time Performed: 17:59:51 PTAGE: 61 years EKG: Sinus rhythm NORMAL ECG Since the PREVIOUS TRACING , no significant change noted PREVIOUS TRACIN08/08/2017 09.19.35 DOCTOR: Belén Harris Interpretating Date/Time 08/09/2017 18:25:41
--- NOTE | 2017-08-09 18:39 | ECHRPT ---
Indication: SYNCOPE CONCLUSIONS Normal left ventricular size. EF @ 55% Mild concentric left ventricular hypertrophy. The left ventricular systolic function is grossly normal on limited imaging. No atrial level shunt is demonstrated by color flow Doppler interrogation. Trace pericardial effusion. BP: / HR: Rhythm: Sinus MEASUREMENTS (Male / Female) Normal Values Technical Quality:Fair M-MODE LV Diastolic Diameter MM 3.8 cm 4.2 - 5.9 / 3.9 - 5.3 cm LV Systolic Diameter MM 1.8 cm LV Ejection Fraction MM Teich 83.2 % IVS Diastolic Thickness MM 1.2 cm 0.6 - 1.0 / 0.6 - 0.9 cm LVPW Diastolic Thickness MM 1.1 cm 0.6 - 1.0 / 0.6 - 0.9 cm LV Relative Wall Thickness MM 0.6 0.24 - 0.42 / 0.22 - 0.42 RV Diastolic Diameter MM 1.5 cm FINDINGS LEFT VENTRICLE Normal left ventricular size. Mild concentric left ventricular hypertrophy. The left ventricular systolic function is grossly normal on limited imaging. RIGHT VENTRICLE Normal right ventricular size and systolic function. ATRIAL SEPTUM No atrial level shunt is demonstrated by color flow Doppler interrogation. AORTIC VALVE Trileaflet aortic valve. No aortic valve stenosis or regurgitation. VESSELS The inferior vena cava is normal in size. PERICARDIUM Trace pericardial effusion. Min Allen MD, FACC, [facility] [place] (Electronically Signed) Final Date:09 August 2017 18:38
[2017-08-09] MEDS: ATORVASTATIN 20 MG TAB PO SCH (22:39)
[2017-08-10] VITALS (11 sets, daily range): BP systolic 121–170; BP diastolic 72–93; PULSE 90–114; RESP 16–18; TEMP 97.2–98.8; O2SAT 93–100
[2017-08-10] MEDS: RESP: ALBUTEROL 2.5 MG/IPRATROPIUM 0.5 MG NEB (SCH) INH ×5 (03:54→21:37)
[2017-08-10] MEDS: methylPREDNISolone SOD SUCC 125 MG/2 ML VIAL IV PUSH SCH ×4 (05:49→20:52)
[2017-08-10] MEDS: LORazepam 1 MG TAB PO PRN (06:02)
[2017-08-10] MEDS: ACETAMINOPHEN 325 MG TAB PO PRN ×2 (06:03→21:01)
[2017-08-10] MEDS: BUDESONIDE-FORMOTEROL 160/4.5 MCG INHALER INH SCH (08:07)
[2017-08-10] MEDS: REMOVE OLD PATCH T-DERMAL SCH (08:18)
[2017-08-10] MEDS: NICOTINE 21 MG/24 HR PATCH T-DERMAL SCH (08:18)
[2017-08-10] MEDS: ALLOPURINOL 100 MG TAB PO SCH (08:19)
[2017-08-10] MEDS: FOLIC ACID 1 MG TAB PO SCH (08:19)
[2017-08-10] MEDS: chlordiazePOXIDE 25 MG CAP PO SCH ×3 (08:19→16:36)
[2017-08-10] MEDS: LEVOFLOXACIN 500 MG TAB PO SCH (08:20)
[2017-08-10] MEDS: amLODIPine BESYLATE 5 MG TAB PO SCH (08:20)
[2017-08-10] MEDS: THIAMINE HCL 100 MG TAB PO SCH (08:20)
[2017-08-10] MEDS: MULTIVITAMINS/MINERALS THERAPEUTIC TAB PO SCH (08:21)
[2017-08-10] MEDS: SODIUM CHLORIDE 0.9% FLUSH 10 ML FLUSH IV FLUSH SCH ×2 (08:21→20:53)
--- NOTE | 2017-08-10 18:00 | HHI.PR ---
Subjective Remarks Patient reports feeling better today, but not back to baseline Objective Vitals Vital Signs Date Time Temp Pulse Resp B/P (MAP) Pulse Ox O2 Delivery O2 Flow Rate FiO2 08/10/17 16:46 97.5 114 16 170/93 (118) 93 08/10/17 16:00 111 08/10/17 12:00 97.7 96 18 121/85 (97) 100 08/10/17 12:00 102 08/10/17 09:10 93 Nasal Cannula 21 08/10/17 08:26 95 08/10/17 08:00 97.3 93 18 124/87 (99) 95 08/10/17 04:00 97.2 103 18 145/85 (105) 96 08/10/17 03:32 90 08/10/17 00:00 97.5 91 18 136/86 (103) 93 08/09/17 23:40 82 08/09/17 20:00 97.1 97 18 169/98 (121) 95 08/09/17 19:50 95 Nasal Cannula 2.00 08/09/17 19:43 90 Result Diagram: 08/09/17 0610 08/09/17 0610 Other Results Laboratory Tests Test 08/08/17 09:20 08/08/17 13:15 08/09/17 06:10 White Blood Count 10.7 TH/MM3 13.6 TH/MM3 Red Blood Count 4.29 MIL/MM3 4.15 MIL/MM3 Hemoglobin 15.0 GM/DL 14.3 GM/DL Hematocrit 43.5 % 42.5 % Mean Corpuscular Volume 101.3 FL 102.5 FL Mean Corpuscular Hemoglobin 34.9 PG 34.5 PG Mean Corpuscular Hemoglobin Concent 34.4 % 33.6 % Red Cell Distribution Width 13.9 % 13.5 % Platelet Count 321 TH/MM3 313 TH/MM3 Mean Platelet Volume 7.7 FL 8.0 FL Neutrophils (%) (Auto) 78.2 % 90.8 % Lymphocytes (%) (Auto) 11.1 % 4.1 % Monocytes (%) (Auto) 8.9 % 5.0 % Eosinophils (%) (Auto) 1.0 % 0.0 % Basophils (%) (Auto) 0.8 % 0.1 % Neutrophils # (Auto) 8.3 TH/MM3 12.3 TH/MM3 Lymphocytes # (Auto) 1.2 TH/MM3 0.6 TH/MM3 Monocytes # (Auto) 0.9 TH/MM3 0.7 TH/MM3 Eosinophils # (Auto) 0.1 TH/MM3 0.0 TH/MM3 Basophils # (Auto) 0.1 TH/MM3 0.0 TH/MM3 CBC Comment DIFF FINAL DIFF FINAL Differential Comment Prothrombin Time 9.7 SEC Prothromb Time International Ratio 1.0 RATIO Activated Partial Thromboplast Time 24.5 SEC D-Dimer Quantitative (PE/DVT) 0.28 MG/L FEU Blood Urea Nitrogen 10 MG/DL 12 MG/DL Creatinine 0.73 MG/DL 0.79 MG/DL Random Glucose 76 MG/DL 184 MG/DL Total Protein 7.2 GM/DL Albumin 3.5 GM/DL Calcium Level 9.0 MG/DL 9.5 MG/DL Magnesium Level 2.3 MG/DL Alkaline Phosphatase 97 U/L Aspartate Amino Transf (AST/SGOT) 26 U/L Alanine Aminotransferase (ALT/SGPT) 28 U/L Total Bilirubin 0.1 MG/DL Sodium Level 135 MEQ/L 140 MEQ/L Potassium Level 4.0 MEQ/L 4.3 MEQ/L Chloride Level 101 MEQ/L 105 MEQ/L Carbon Dioxide Level 23.4 MEQ/L 25.4 MEQ/L Anion Gap 11 MEQ/L 10 MEQ/L Estimat Glomerular Filtration Rate 109 ML/MIN 100 ML/MIN Total Creatine Kinase 86 U/L Troponin I LESS THAN 0.02 NG/ML B-Type Natriuretic Peptide 12 PG/ML Ammonia 23 MCMOL/L Vitamin B12 Level 927 PG/ML Folate GREATER THAN 20.0 NG/ML Free Thyroxine 0.77 NG/DL Thyroid Stimulating Hormone 3rd Gen 0.250 uIU/ML Rapid Plasma Reagin NON-REACTIVE Imaging Last Impressions Head CT 08/08/17 1018 Signed Impressions: CONCLUSION: 1. Senescent changes without acute intracranial abnormality. 2. Paranasal mucosal sinus disease. Chest X-Ray 08/08/17 0927 Signed Impressions: CONCLUSION: No acute cardiopulmonary findings. Chest CT 08/08/17 0000 Signed Impressions: CONCLUSION: 1. Emphysema without infiltrate. 2. Minimal right basilar subsegmental atelectasis/scarring. 3. Hepatic low densities and right adrenal myelolipoma. Objective Remarks GENERAL: This is a well-nourished, well-developed patient, in no apparent distress. CARDIOVASCULAR: Regular rate and rhythm RESPIRATORY: improved air movement few scatter expiratory wheezes GASTROINTESTINAL: Abdomen soft, non-tender, nondistended. Normal active bowel sounds MUSCULOSKELETAL: Extremities without clubbing, cyanosis, or edema. NEURO: Alert & Oriented x4 to person, place, time, situation. Moves all ext x4 A/P Problem List: (1) Pre-syncope ICD Codes: R55 - Syncope and collapse Status: Acute Plan: - near syncopal episode likely d/t COPD exacerbation and etoh - tele: NSR/sinus tach - holter pending - echocardiogram pending - Ammonia, Folate, TSH free T4, RPR, Vit B 12 --> WNL - DVT prophylaxis with SCDs (2) COPD exacerbation ICD Codes: J44.1 - Chronic obstructive pulmonary disease with (acute) exacerbation Status: Acute Plan: - Pt has smoked since 18 y/o. Pt recently stopped. Using NicoDerm patch - Solu-medrol 125 mg IV given in ER - Supplemental oxygen as need to maintain saturation > 92% - CXR (08/08) --> no acute findings - CT chest (08/08) --> mild emphysema - Symbicort BID patient request DC Symbicort prefers Anoro Elipta - Start Anoro Elipta - Duonebs Q6H and PRN - Solumedrol 60 Q6H -> if patient continues to improve with transition to PO steroids tomorrow - levaquin - IS and Acapella (3) ETOH abuse ICD Codes: F10.10 - Alcohol abuse, uncomplicated Plan: - tremulous - increase scheduled librium to 25mg TID -> (08/10/17) decrease to Librium 10 mg PO TID - ativan by [facility] protocol - MVI, thiamine, folate - Pt will need to f/u with [facility] upon discharge (4) Gout ICD Codes: M10.9 - Gout, unspecified Plan: Continue home allopurinol (5) HTN (hypertension) ICD Codes: I10 - Essential (primary) hypertension Plan: Continue home amlodipine 2.5 mg PO daily (6) Hyperlipidemia ICD Codes: E78.5 - Hyperlipidemia, unspecified Plan: continue home Atorvastatin Aurelia Burris Aug 10, 2017 18:00 Jeferson Blue DO Aug 11, 2017 18:02
[2017-08-10] MEDS: UMECLIDINIUM 62.5 MCG/VILANTEROL 25 MCG INHALER INH SCH (20:53)
[2017-08-10] MEDS: ATORVASTATIN 20 MG TAB PO SCH (20:55)
[2017-08-11] VITALS (10 sets, daily range): BP systolic 140–155; BP diastolic 77–92; PULSE 76–98; RESP 17–18; TEMP 97.2–98.2; O2SAT 93–95
[2017-08-11] MEDS: methylPREDNISolone SOD SUCC 125 MG/2 ML VIAL IV PUSH SCH ×4 (04:36→21:25)
[2017-08-11] MEDS: RESP: ALBUTEROL 2.5 MG/IPRATROPIUM 0.5 MG NEB (SCH) INH ×3 (05:29→22:04)
[2017-08-11] MEDS: LEVOFLOXACIN 500 MG TAB PO SCH (08:43)
[2017-08-11] MEDS: FOLIC ACID 1 MG TAB PO SCH (08:43)
[2017-08-11] MEDS: THIAMINE HCL 100 MG TAB PO SCH (08:43)
[2017-08-11] MEDS: UMECLIDINIUM 62.5 MCG/VILANTEROL 25 MCG INHALER INH SCH (08:43)
[2017-08-11] MEDS: ALLOPURINOL 100 MG TAB PO SCH (08:43)
[2017-08-11] MEDS: MULTIVITAMINS/MINERALS THERAPEUTIC TAB PO SCH (08:43)
[2017-08-11] MEDS: REMOVE OLD PATCH T-DERMAL SCH (08:43)
[2017-08-11] MEDS: NICOTINE 21 MG/24 HR PATCH T-DERMAL SCH (08:43)
[2017-08-11] MEDS: SODIUM CHLORIDE 0.9% FLUSH 10 ML FLUSH IV FLUSH SCH ×2 (08:44→21:26)
[2017-08-11] MEDS: amLODIPine BESYLATE 5 MG TAB PO SCH (08:44)
[2017-08-11] MEDS: LORazepam 1 MG TAB PO PRN ×2 (12:17→21:28)
--- NOTE | 2017-08-11 18:07 | HHI.PR ---
Subjective Remarks No new complaints. Objective Vitals Vital Signs Date Time Temp Pulse Resp B/P (MAP) Pulse Ox O2 Delivery O2 Flow Rate FiO2 08/11/17 12:20 97.8 96 17 155/92 (113) 95 08/11/17 12:05 93 Nasal Cannula 2.00 08/11/17 12:00 98 08/11/17 08:38 97.3 87 17 146/77 (100) 93 08/11/17 08:00 Nasal Cannula 2.00 08/11/17 08:00 76 08/11/17 04:00 78 08/11/17 04:00 97.2 82 18 140/80 (100) 94 08/11/17 00:00 97.7 91 18 140/78 (98) 94 08/11/17 00:00 82 08/10/17 21:38 95 Nasal Cannula 2.00 08/10/17 20:30 Nasal Cannula 2.00 08/10/17 20:00 98 08/10/17 20:00 98.8 95 17 151/72 (98) 95 Result Diagram: 08/09/17 0610 08/09/17 0610 Imaging Last Impressions Head CT 08/08/17 1018 Signed Impressions: CONCLUSION: 1. Senescent changes without acute intracranial abnormality. 2. Paranasal mucosal sinus disease. Chest X-Ray 08/08/17 0927 Signed Impressions: CONCLUSION: No acute cardiopulmonary findings. Chest CT 08/08/17 0000 Signed Impressions: CONCLUSION: 1. Emphysema without infiltrate. 2. Minimal right basilar subsegmental atelectasis/scarring. 3. Hepatic low densities and right adrenal myelolipoma. Objective Remarks GENERAL: This is a well-nourished, well-developed patient, in no apparent distress. CARDIOVASCULAR: Regular rate and rhythm RESPIRATORY: improved air movement few scatter expiratory wheezes GASTROINTESTINAL: Abdomen soft, non-tender, nondistended. Normal active bowel sounds MUSCULOSKELETAL: Extremities without clubbing, cyanosis, or edema. NEURO: Alert & Oriented x4 to person, place, time, situation. Moves all ext x4 A/P Problem List: (1) Pre-syncope ICD Codes: R55 - Syncope and collapse Status: Acute Plan: - near syncopal episode likely d/t COPD exacerbation and etoh - tele: NSR/sinus tach - holter --> pending - echocardiogram (08/09) --> 55% - Ammonia, Folate, TSH free T4, RPR, Vit B 12 --> WNL - DVT prophylaxis with SCDs (2) COPD exacerbation ICD Codes: J44.1 - Chronic obstructive pulmonary disease with (acute) exacerbation Status: Acute Plan: - Pt has smoked since 18 y/o. Pt recently stopped. Using NicoDerm patch - Solu-medrol 125 mg IV given in ER - Supplemental oxygen as need to maintain saturation > 92% - CXR (08/08) --> no acute findings - CT chest (08/08) --> mild emphysema - Anoro Elipta daily - Duonebs Q6H and PRN - Solumedrol 60 Q6H -> anticipate decreasing dose to BID 08/11 - levaquin - IS and Acapella - home oxygen? - anticipate d/c to home sunday/sunday. (3) ETOH abuse ICD Codes: F10.10 - Alcohol abuse, uncomplicated Plan: - tremulous, improving - Librium 10 mg PO TID --> hopefully will d/c 08/12 - ativan by [facility] protocol - MVI, thiamine, folate - Pt will need to f/u with [facility] Mental Health upon discharge (4) Gout ICD Codes: M10.9 - Gout, unspecified Plan: Continue home allopurinol (5) HTN (hypertension) ICD Codes: I10 - Essential (primary) hypertension Plan: Continue home amlodipine 2.5 mg PO daily - observe (6) Hyperlipidemia ICD Codes: E78.5 - Hyperlipidemia, unspecified Plan: continue home Atorvastatin Jeferson Blue DO Aug 11, 2017 18:06
[2017-08-11] MEDS: ATORVASTATIN 20 MG TAB PO SCH (21:25)
[2017-08-12] VITALS (8 sets, daily range): BP systolic 121–176; BP diastolic 75–98; PULSE 76–97; RESP 17–20; TEMP 96–97.4; O2SAT 93–95
[2017-08-12] MEDS: RESP: ALBUTEROL 2.5 MG/IPRATROPIUM 0.5 MG NEB (SCH) INH ×4 (04:27→20:32)
[2017-08-12] MEDS: methylPREDNISolone SOD SUCC 125 MG/2 ML VIAL IV PUSH SCH ×2 (04:37→09:05)
[2017-08-12] MEDS: UMECLIDINIUM 62.5 MCG/VILANTEROL 25 MCG INHALER INH SCH (09:03)
[2017-08-12] MEDS: LEVOFLOXACIN 500 MG TAB PO SCH (09:05)
[2017-08-12] MEDS: NICOTINE 21 MG/24 HR PATCH T-DERMAL SCH (09:05)
[2017-08-12] MEDS: amLODIPine BESYLATE 5 MG TAB PO SCH (09:05)
[2017-08-12] MEDS: REMOVE OLD PATCH T-DERMAL SCH (09:06)
[2017-08-12] MEDS: THIAMINE HCL 100 MG TAB PO SCH (09:06)
[2017-08-12] MEDS: FOLIC ACID 1 MG TAB PO SCH (09:06)
[2017-08-12] MEDS: MULTIVITAMINS/MINERALS THERAPEUTIC TAB PO SCH (09:06)
[2017-08-12] MEDS: ALLOPURINOL 100 MG TAB PO SCH (09:06)
[2017-08-12] MEDS: SODIUM CHLORIDE 0.9% FLUSH 10 ML FLUSH IV FLUSH SCH ×2 (09:06→21:41)
[2017-08-12] MEDS: ACETAMINOPHEN 325 MG TAB PO PRN ×2 (09:13→21:40)
[2017-08-12] MEDS: LORazepam 1 MG TAB PO PRN (12:26)
--- NOTE | 2017-08-12 14:47 | HM ---
Date Performed: 08/09/2017 Time Performed: 10:56:00 HOOKUP DATE: 08/09/17 10:56:00 AM [place] ANALYSIS START TIME: 08/09/2017 11:01:00 AM ANALYSIS END TIME: 08/10/2017 11:05:00 AM PATIENT AGE: 61 PATIENT HEIGHT PATIENT WEIGHT DRUG LIST PATIENT DIAGNOSIS: RESPIRATORY TEST NARRATIVE: The patient's average heart rate was 102 BPM. Heart rates greater than 120 BPM were noted 12% of the time. No episodes of bradycardia were noted. No pauses exceeding 2.0 s econds were noted. 59 ventricular ectopics, which represented < 1% of the total beat count, were noted. The highest ventricular ectopic frequency occurred from 06:00 PM to 07:00 PM [place]. During thi s time 14 VE(s) occurred. Ventricular ectopics were observed as 59 isolated beat(s) only. No couple ts or runs were noted. 56 supraventricular ectopics, which represented < 1% of the total beat cou nt, were noted. The highest supraventricular ectopic frequency occurred from 02:00 PM to 03:00 PM Th u. During this time 6 SVE(s) occurred. Multiple episodes of ST depression (defined as -1.0 mm or more) were noted in channel 1. The maximum depression of -1.9 mm occurred at 02:57:57 PM [place]. Mul tiple episodes of ST depression (defined as -1.0 mm or more) were noted in channel 2. The maximum d epression of -2.9 mm occurred at 12:55:40 PM [place]. Multiple episodes of ST depression (defined as -1. 0 mm or more) were noted in channel 3. The maximum depression of -2.1 mm occurred at 12:55:35 PM Th u. TEST INTERPRETATION: Agree with above interpretation. Signed by : Juventino Moreau
--- NOTE | 2017-08-12 16:00 | HHI.PR ---
Subjective Remarks Patient reports feeling much better today, feels that breathing has improved Objective Vitals Vital Signs Date Time Temp Pulse Resp B/P (MAP) Pulse Ox O2 Delivery O2 Flow Rate FiO2 08/12/17 12:20 97.4 96 17 157/85 (109) 93 08/12/17 09:59 94 21 08/12/17 08:20 97.4 76 17 139/81 (100) 94 08/12/17 08:00 Nasal Cannula 2.00 08/12/17 04:00 97.3 91 18 139/76 (97) 95 08/12/17 04:00 Nasal Cannula 2.00 08/12/17 00:00 97.4 97 20 121/75 (90) 95 08/12/17 00:00 Nasal Cannula 2.00 08/11/17 22:05 95 Nasal Cannula 2.00 08/11/17 21:30 Nasal Cannula 2.00 08/11/17 20:00 98.2 84 18 143/79 (100) 95 08/11/17 16:20 97.6 84 17 148/82 (104) 95 Result Diagram: 08/09/17 0610 08/09/17 0610 Imaging Last Impressions Head CT 08/08/17 1018 Signed Impressions: CONCLUSION: 1. Senescent changes without acute intracranial abnormality. 2. Paranasal mucosal sinus disease. Chest X-Ray 08/08/17 0927 Signed Impressions: CONCLUSION: No acute cardiopulmonary findings. Chest CT 08/08/17 0000 Signed Impressions: CONCLUSION: 1. Emphysema without infiltrate. 2. Minimal right basilar subsegmental atelectasis/scarring. 3. Hepatic low densities and right adrenal myelolipoma. Objective Remarks GENERAL: This is a well-nourished, well-developed patient, in no apparent distress. CARDIOVASCULAR: Regular rate and rhythm RESPIRATORY: improved air movement, clear through out GASTROINTESTINAL: Abdomen soft, non-tender, nondistended. Normal active bowel sounds MUSCULOSKELETAL: Extremities without clubbing, cyanosis, or edema. NEURO: Alert & Oriented x4 to person, place, time, situation. Moves all ext x4 A/P Problem List: (1) Pre-syncope ICD Codes: R55 - Syncope and collapse Status: Acute Plan: - near syncopal episode likely d/t COPD exacerbation and etoh - tele: NSR/sinus tach - holter --> pending - echocardiogram (6/21) --> 55% - Ammonia, Folate, TSH free T4, RPR, Vit B 12 --> WNL - DVT prophylaxis with SCDs (2) COPD exacerbation ICD Codes: J44.1 - Chronic obstructive pulmonary disease with (acute) exacerbation Status: Acute Plan: - Pt has smoked since 18 y/o. Pt recently stopped. Using NicoDerm patch - Solu-medrol 125 mg IV given in ER - Supplemental oxygen as need to maintain saturation > 92% - CXR (08/08) --> no acute findings - CT chest (08/08) --> mild emphysema - Anoro Elipta daily - Duonebs Q6H and PRN - Solumedrol 60 Q6H -> change to prednisone 30 mg PO BID - levaquin - IS and Acapella - home oxygen? - anticipate d/c to home in 1-2 days (3) ETOH abuse ICD Codes: F10.10 - Alcohol abuse, uncomplicated Plan: - tremulous, improving - Librium 10 mg PO TID --> d/c 08/12 - ativan by [facility] protocol - MVI, thiamine, folate - Pt will need to f/u with [facility] Health upon discharge (4) Gout ICD Codes: M10.9 - Gout, unspecified Plan: Continue home allopurinol (5) HTN (hypertension) ICD Codes: I10 - Essential (primary) hypertension Plan: At home patient takes amlodipine 2.5 mg PO daily Increased to Amlodipine to 5 mg PO daily - observe (6) Hyperlipidemia ICD Codes: E78.5 - Hyperlipidemia, unspecified Plan: continue home Atorvastatin Assessment and Plan Patient examined. Assessment and plan formulated with Aurelia Burris PA-C. I agree with the above. c/o vague abdominal discomfort. Obtain KUB. Pt is eating well. Pt denies n/v/d. Less SOB from admission. anticipate d/c to home in the next 1-2 days change IV solumedrol to PO prednisone. stop scheduled librium. Aurelia Burris Aug 12, 2017 16:00 Jeferson Blue DO Aug 12, 2017 16:51
[2017-08-12] MEDS ORDERED: IPRA0.02 NEB (16:44)
[2017-08-12] MEDS ORDERED: NEBULIZER1 MI1 (16:44)
[2017-08-12] MEDS ORDERED: OXYGENDME NAS.CANULA (16:44)
[2017-08-12] MEDS ORDERED: OXYGENTANK NAS.CANULA (16:44)
[2017-08-12] MEDS ORDERED: ALBU.5I NEB (16:44)
[2017-08-12] MEDS ORDERED: AMLO5 PO (16:44)
[2017-08-12] MEDS ORDERED: PRED10 PO (16:44)
--- NOTE | 2017-08-12 16:47 | HHI.DCPOC ---
Discharge Care Plan Diagnosis: (1) COPD exacerbation (2) HTN (hypertension) Goals to Promote Your Health * To prevent worsening of your condition and complications * To maintain your health at the optimal level Directions to Meet Your Goals Take your medications as prescribed Follow your dietary instruction Follow activity as directed Keep your appointments as scheduled Take your immunizations and boosters as scheduled If your symptoms worsen call your PCP, if no PCP go to Urgent Care Center or Emergency Room Smoking is Dangerous to Your Health. Avoid second hand smoke Call the 24-hour hour crisis hotline for domestic abuse at Aurelia Burris Aug 12, 2017 16:47
--- NOTE | 2017-08-12 16:48 | HHI.FF ---
Face to Face Verification Diagnosis: (1) COPD exacerbation (2) HTN (hypertension) Home Health Nursing Order: Medical education Signs/symptoms of disease process Oxygen administration education Medication education-adverse effect I have seen patient Benitez Lee on 08/12/17. My clinical findings support the need for the requested home health care services because: Patient has SOB I certify that my clinical findings support that this patient is homebound because: Hx COPD- exertion dyspnea/weakness Aurelia Burris Aug 12, 2017 16:48 Jeferson Blue DO Aug 12, 2017 16:51
--- NOTE | 2017-08-12 17:42 | RADRPT ---
EXAM DATE: 08/12/2017 5:23 PM EDT AGE/SEX: 61 years / Male INDICATIONS: Feeling of weakness in abdominal area, specifically in diaphragm region. CLINICAL DATA: This is the patient's initial encounter. Patient reports that signs and symptoms have been present for 3 days and indicates a pain score of 0/10. MEDICAL/SURGICAL HISTORY: . Hernia, umbilical. . Hernia repair, umbilical. COMPARISON: No prior exams available for comparison. FINDINGS: The abdominal bowel gas pattern is normal. No abnormal masses, calcifications, or organomegaly is s een. The osseous structures are unremarkable. CONCLUSION: No acute findings. Linear atelectasis or scarring at the lung bases. Electronically signed by: Shay Bennett MD 08/12/2017 5:40 PM EDT
[2017-08-12] MEDS: ATORVASTATIN 20 MG TAB PO SCH (21:40)
[2017-08-12] MEDS: predniSONE 10 MG TAB PO SCH (21:40)
[2017-08-13] VITALS: BP 153/84; PULSE 78; RESP 16; TEMP 96.8; O2SAT 95
[2017-08-13 04:00] VITALS: BP 133/96; PULSE 84; RESP 18; TEMP 96.8; O2SAT 95
[2017-08-13] MEDS: RESP: ALBUTEROL 2.5 MG/IPRATROPIUM 0.5 MG NEB (SCH) INH ×2 (04:31→09:41)
[2017-08-13] MEDS: ALLOPURINOL 100 MG TAB PO SCH (07:51)
[2017-08-13] MEDS: MULTIVITAMINS/MINERALS THERAPEUTIC TAB PO SCH (07:51)
[2017-08-13] MEDS: THIAMINE HCL 100 MG TAB PO SCH (07:51)
[2017-08-13] MEDS: predniSONE 10 MG TAB PO SCH (07:51)
[2017-08-13] MEDS: amLODIPine BESYLATE 5 MG TAB PO SCH (07:51)
[2017-08-13] MEDS: FOLIC ACID 1 MG TAB PO SCH (07:51)
[2017-08-13] MEDS: NICOTINE 21 MG/24 HR PATCH T-DERMAL SCH (07:51)
[2017-08-13] MEDS: SODIUM CHLORIDE 0.9% FLUSH 10 ML FLUSH IV FLUSH SCH (07:52)
[2017-08-13] MEDS: UMECLIDINIUM 62.5 MCG/VILANTEROL 25 MCG INHALER INH SCH (07:52)
[2017-08-13] MEDS: REMOVE OLD PATCH T-DERMAL SCH (07:52)
[2017-08-13] MEDS: LORazepam 1 MG TAB PO PRN (07:54)
[2017-08-13 08:00] VITALS: BP 176/94; PULSE 88; RESP 20; TEMP 97.4; O2SAT 92
[2017-08-13] MEDS: ACETAMINOPHEN 325 MG TAB PO PRN (08:01)
[2017-08-13] MEDS ORDERED: ANTA250T PO (08:28)
[2017-08-13] MEDS ORDERED: LORA-392 PO (08:28)
--- NOTE | 2017-08-13 08:33 | HHI.DS ---
Discharge Summary Admission Date Aug 09, 2017 at 11:35 Discharge Date: Aug 13, 2017 Admitting Diagnosis COPD exacerbation and near syncope (1) Pre-syncope Diagnosis: Principal ICD Codes: R55 - Syncope and collapse Status: Acute (2) COPD exacerbation Diagnosis: Principal ICD Codes: J44.1 - Chronic obstructive pulmonary disease with (acute) exacerbation Status: Acute (3) ETOH abuse Diagnosis: Principal ICD Codes: F10.10 - Alcohol abuse, uncomplicated (4) Gout Diagnosis: Secondary ICD Codes: M10.9 - Gout, unspecified (5) HTN (hypertension) Diagnosis: Secondary ICD Codes: I10 - Essential (primary) hypertension (6) Hyperlipidemia Diagnosis: Secondary ICD Codes: E78.5 - Hyperlipidemia, unspecified Brief History This is a 61 year old male patient with a past medical history which includes HTN, hyperlipidemia, COPD, pancreatitis and gout. Patient presents to the emergency department for a near syncopal episode at work earlier today. States that he was at work this morning, he is a maintenance supervisor 2nd shift. Patient states that he was in his normal state of health this AM doing his normal routine began to feel nauseated he went outside and leaned against the wall. He did not fall, he had to hold himself up on the wall and reports that his vision went white, for a few seconds. Patient does endorse diaphoresis, severe shortness of breath and cough productive of yellow/green phlegm. Patient reports that he has been short of breath for many year but his shortness of breath has gotten progressively worse over the past 2 weeks. Patient denies chest pain or N/V during the episode. Patient admits to drinking approximately a 12 pack of beer per day and is trying to quit smoking using nicotine patch. CBC/BMP: 08/09/17 0610 08/09/17 0610 Hospital Course A/P Problem List: (1) Pre-syncope ICD Codes: R55 - Syncope and collapse Status: Acute - near syncopal episode felt most likely d/t COPD exacerbation and etoh - tele: NSR/sinus tach - holter --> no arrhythmia noted - echocardiogram (08/09) --> 55% - Ammonia, Folate, TSH free T4, RPR, Vit B 12 --> WNL - DVT prophylaxis with SCDs (2) COPD exacerbation ICD Codes: J44.1 - Chronic obstructive pulmonary disease with (acute) exacerbation Status: Acute - Pt has smoked since 18 y/o. Pt recently stopped. Using NicoDerm patch - Solu-medrol and scheduled nebs given with improvement back to baseline - Failed walk test and home o2 with nebulizer arranged - CXR (08/08) --> no acute findings - CT chest (08/08) --> mild emphysema cont his anora, prn ventolin. nebulizer given for the acute flare steroid taper written (3) ETOH abuse ICD Codes: F10.10 - Alcohol abuse, uncomplicated Plan: - tremulous, improving - Librium 10 mg PO TID --> d/c 08/12 - ativan by [facility] protocol - MVI, thiamine, folate - Pt will need to f/u with [facility] upon discharge - pt given ativan taper at [facility] - He also specifically requested a script for antabuse for etoh cessation. (4) Gout ICD Codes: M10.9 - Gout, unspecified Plan: Continue home allopurinol (5) HTN (hypertension) ICD Codes: I10 - Essential (primary) hypertension Plan: At home patient takes amlodipine 2.5 mg PO daily Increased to Amlodipine to 5 mg PO daily - observe (6) Hyperlipidemia ICD Codes: E78.5 - Hyperlipidemia, unspecified Plan: continue home Atorvastatin Pt Condition on Discharge: Stable Discharge Disposition: Disch w/ Home Health Serv Discharge Instructions DIET: Follow Instructions for: Heart Healthy Diet Activities you can perform: Regular-No Restrictions Follow up Referrals: PCP Follow-up - [address] Cuellar Pulmonology - 2 Weeks with Emilio Peoples MD New Medications: Albuterol Neb (Albuterol Neb) 2.5 Mg/0.5 Ml Neb 2.5 MG NEB Q6HR NEB PRN for SOB/WHEEZING, #60 EACH 0 Refills Note: The Albuterol Sulfate Inhalation Solution is concentrated and must be diluted. Read complete instructions carefully before using. Disulfiram (Antabuse) 250 Mg Tab 250 MG PO DAILY for Alcohol Detox, #15 TAB 0 Refills Ipratropium Neb (Ipratropium Neb) 0.5 Mg/2.5 Ml Amp 0.5 MG NEB Q4HR NEB PRN for SHORTNESS OF BREATH, #60 NEBULE 0 Refills Lorazepam (Ativan) 0.5 Mg Tab 0.5 MG PO DIRECTED for Agitation, #11 TAB 0 Refills 1mg po bid x 1 day, 0.5mg po bid x 2 days, 0.5mg po daily x 3 days Nebulizer (Nebulizer) 1 Mis Mis EA .XX DIRECTED for Breathing Treatment, #1 0 Refills Oxygen (O2) (Oxygen (O2)) Device LITER PRASHANT.CANULA CONTINUOUS for Prevent Hypoxemia, #2 Oxygen Concentrator Portable Gaseous 2 L/min via Nasal Canula Continuous For 1 month Oxygen tank (Oxygen tank) 1 Ea Tank LITER PRASHANT.CANULA CONTINUOUS for HYPOXEMIA PREVENTION, #2 Oxygen Concentrator Portable Gaseous 2 L/min via Nasal Cannula Continuous For 1 month Prednisone (Prednisone) 10 Mg Tab 10 MG PO DIRECTED for steroid taper, #21 TAB 0 Refills take 20 mg by mouth twice a day for 3 days take 20 by by mouth once a day for 3 days tale 10 mg by mouth once a day for 3 days Amlodipine (Norvasc) 5 Mg Tab 5 MG PO DAILY for blood pressure for 30 Days, #30 TAB Continued Medications: Albuterol 18 GM Inh (Ventolin Hfa 18 GM Inh) 90 Mcg/Act Aer 2 PUFF INH Q6H PRN for SHORTNESS OF BREATH, #1 INHALER 0 Refills Allopurinol (Allopurinol) 100 Mg Tab 100 MG PO DAILY for Gout, #30 TAB 0 Refills Atorvastatin (Atorvastatin) 20 Mg Tab 20 MG PO HS for Cholesterol Management, #30 TAB 0 Refills Omeprazole Magnesium (Prilosec) 20 Mg Tab 20 MG PO Ropinirole (Ropinirole) 2 Mg Tab 2 MG PO HS, #1 TAB 0 Refills Umeclidinium-Vilanterol Inh (Anoro Ellipta Inh) 62.5-25 Mcg/Act Aero 1 PUFF INH DAILY for COPD, #1 INHALER 0 Refills Discontinued Medications: Amlodipine (Amlodipine) 2.5 Mg Tab 2.5 MG PO DAILY for Blood Pressure Management, #30 TAB 0 Refills Hydrocodone-Acetaminophen (Hydrocodone-Acetaminophen) 10-325 mg Tab 1 TAB PO Q6H PRN for PAIN, TAB 0 Refills Spironolactone (Spironolactone) 25 Mg Tab 25 MG PO DAILY, #30 TAB 0 Refills Tee Andres MD Aug 13, 2017 08:33
[2017-08-13 09:06] VITALS: RESP 18
[2017-08-13 09:43] VITALS: O2SAT 93
== END 2017-08-13 12:09 | disposition home or self-care (01) | DRG 192 ==
LOC: NEPE 08:42 → NEDA 12:05 → NEPGCP 13:09 → OBSVTOIN 08-09 11:35 → N04B 08-09 15:46
PROVIDERS: ADMIT Hospitalist; ATTEND Hospitalist
DX: J44.1 Chronic obstructive pulmonary disease with (acute) exacerbation (principal); I10 Essential (primary) hypertension; R55 Syncope and collapse; F10.10 Alcohol abuse, uncomplicated; M10.9 Gout, unspecified; E78.5 Hyperlipidemia, unspecified; F17.200 Nicotine dependence, unspecified, uncomplicated
CPT/HCPCS: 70450; 71045; 71260; 74018; 80048; 80053; 82140; 82550; 82607; 82746; 83735; 83880; 84439; 84443; 84484; 85025; 85379; 85610; 85730; 86592; 93005; 93225; 93226; 93306; 94150; 94618; 94640; 94664; 94667; 94668; 96374; J2930; J3480; J7512; Q9967